=== PATIENT | female | born 1945 | race Caucasian/White ===

== ENCOUNTER 2019-12-04 12:54 | Inpatient (IN) | payer MEDICARE, OTHER ==
[~2019-12-04] VITALS: Ht 157.5 cm; Wt 127.6 kg
--- NOTE | ~2019-12-04 | EMS ---
[place] [address] EMS Patient Care Report Name: ALONDRA DASH Room: [place] [address] ADM IN [facility]#: [id number] Admission: 12/04/19 Attend Phys: Janelle Mejias Discharge: Date of : 41 Report #: [id number] THIS REPORT FOR: //name// Report Transmitted: 12/04/2019 14:03 EMS Care Summary [facility] Incident [id number] @ 12/04/2019 11:48 Incident [address] [place] [address] Patient ALONDRA DASH Female, 74 Years 1945 Patient Address [address] [place] [address] Patient History Chronic Obstructive Pulmonary Disease (COPD),Diabetes,Hypertension (HTN),Emphysema,Edema,Shortness of Breath,Coronary Artery Disease (CAD),Cardiomyopathy, Patient Allergies No known allergies, Patient Medications Atorvastatin, Atrovent, Potassium, Glipizide, Duloxetine, Coumadin, Pantoprazole, Albuterol, Furosemide, Hydralazine, Metoprolol, Prednisone, Novolin, Chief Complaint "Weird feeling in my chest." Disposition Transported No Lights/[place] Reason Sick Person Transported To [facility] Narrative Dispatch: [place] [address] EMS Patient Care Report Name: ALONDRA DASH Room: [address] IN [facility]#: [id number] Admission: 12/04/19 Attend Phys: Janelle Mejias Discharge: Date of : 41 Report #: [id number] [facility] was dispatched to a local address for a patient who was having some sort of cardiac issue. [facility] responded from the station and arrived on scene without incident. Chief Complaint: Upon arrival to the scene, the patient, (Alondra Dash - goes by Pat) was complaining of a "weird" feeling in her chest. She could not describe it further. She stated that it began when she woke up in the morning, so she went to the doctor. At the doctor's office, they did an EKG and stated that she was in atrial fibrillation with rapid ventricular response. History of Present Illness: Alondra has a history of atrial fibrillation, and she stated that she usually does not have problems with it. She stated that she woke up in the morning and had a "weird" feeling in her chest. She stated that she did not exert herself, and nothing was abnormal with her routine. However, she did admit that she did not take her morning medications. Alondra denied any pain or other complaints. Assessment: Primary Assessment - Marika had a patent airway, her respiratory effort was not noted to be labored, her skin was pink, warm, and dry. Radial pulses were present and no disability was noted. Secondary Assessment - See assessment section for further information. Reason for Ambulance Transport: Mariak required further evaluation and treatment at the hospital by a physician. Treatments: Assessment was performed. Vital signs were obtained. 12-Lead EKGs were performed and would show sinus tachycardia with premature ventricular complexes or would show atrial fibrillation. IV access was attempted and failed with an 18 gauge IV in the left antecubital space. IV access was obtained in the right antecubital space with a 20 gauge IV. It was flushed with saline and secured with a saline lock. A 500 mL bag of Lactated Ringer's was hung and 200 mL was administered during transport. Vagal maneuvers were attempted and performed without success. 12 mg of adenosine was administered without relief or success. Summary of Call: Alondra was moved to the cot, all seat belts were applied and she was taken to the ambulance and loaded without incident. Non-emergency transport to the hospital began. During transport, no changes in patient condition were noted. Report was called to the receiving facility. Upon arrival to the hospital, Marika was unloaded and taken into the facility without [place]. [place] [address] EMS Patient Care Report Name: ALONDRA DASH Room: [address] IN [facility]#: [id number] Admission: 12/04/19 Attend Phys: Janelle Mejias Discharge: Date of : 41 Report #: [id number] to the hospital bed, report was given to nursing staff, signatures were obtained, and patient care was transferred. Initial Vitals @12:10P: 141,R: 16,BP: 142/86,Pain: 0/10,GCS: 15,SpO2: 96,Revised Trauma: 12,CA Suspected: false @12:48P: 134,R: 18,Pain: 0/10,GCS: 15,SpO2: 97,CA Suspected: false @12:24P: 135,R: 18,BP: 101/82,Pain: 0/10,GCS: 15,SpO2: 96,Revised Trauma: 12,CA Suspected: false @12:19P: 141,R: 16,BP: 99/55,Pain: 0/10,GCS: 15,Glucose: 286,SpO2: 96,Revised Trauma: 12, @12:31P: 152,R: 16,BP: 104/82,Pain: 0/10,GCS: 15,SpO2: 94,Revised Trauma: 12, @12:45P: 132,R: 16,BP: 113/80,Pain: 0/10,GCS: 15,SpO2: 94,Revised Trauma: 12, Assessments @12:00MENTAL:Person Oriented,Time Oriented,Event Oriented,Place Oriented,SKIN:HEENT:Eyes: Left Pupil: 3-mm,Eyes: Right Pupil: 3-mm,LUNG SOUNDS:ABDOMEN:PELVIS//GI:EXTREMITIES:Capillary Refill: Left Upper: < 2 Sec,PULSE:Radial: 2+ Normal,NEURO:@12:45MENTAL:Event Oriented,Time Oriented,Person Oriented,Place Oriented,SKIN:HEENT:Head/Face: No Abnormalities,Eyes: No Abnormalities,Neck/Airway: No Abnormalities,LUNG SOUNDS:ABDOMEN:PELVIS//GI:EXTREMITIES:PULSE:Radial: 2+ Normal,NEURO: Impression Cardiac arrhythmia/dysrhythmia Procedures @12:4212-Lead ECGResponse: UnchangedSucceeded@12:1012-Lead ECGResponse: UnchangedSucceeded@12:1912-Lead ECGResponse: UnchangedSucceeded@12:4812-Lead ECGResponse: UnchangedSucceeded@12:3112-Lead ECGResponse: UnchangedSucceeded@12:05ALS AssessmentResponse: UnchangedSucceeded@12:11Normal Saline (.9% NaCl) 0cc (18 ga) Site: Antecubital-LeftResponse: UnchangedFailed@12:12Lactated Ringers 200cc (20 ga) Site: Antecubital-RightResponse: UnchangedSucceeded@12:25Adenosine - 12 Milligrams (mg) - Intravenous (IV)Response: Unchanged Timeline 11:48,Call Received 11:48,Dispatched 11:50,En Route 11:55,On Scene 11:59,At Patient 12:05,ALS Assessment,Response: UnchangedSucceeded, 12:10,12-Lead ECG,Response: UnchangedSucceeded, 12:10,BP: 142/86 M,PULSE: 141,RR: 16 R,SPO2: 96 Ox,ETCO2: ,BG: ,PAIN: 0,GCS: 15, [place] [address] EMS Patient Care Report Name: ALONDRA DASH Room: [place] [address] ADM IN [facility]#: [id number] Admission: 12/04/19 Attend Phys: Janelle Mejias Discharge: Date of : 41 Report #: [id number] 12:11,Normal Saline (.9% NaCl) 0cc 18 ga Site: Antecubital-Left,Response: UnchangedFailed, 12:12,Lactated Ringers 200cc 20 ga Site: Antecubital-Right,Response: UnchangedSucceeded, 12:17,Depart Scene 12:19,12-Lead ECG,Response: UnchangedSucceeded, 12:19,BP: 99/55 M,PULSE: 141,RR: 16 R,SPO2: 96 Ox,ETCO2: ,B,PAIN: 0,GCS: 15, 12:24,BP: 101/82 M,PULSE: 135,RR: 18 R,SPO2: 96 Ox,ETCO2: ,BG: ,PAIN: 0,GCS: 15, 12:25,Adenosine - 12 Milligrams (mg) - Intravenous (IV),Response: Unchanged 12:31,12-Lead ECG,Response: UnchangedSucceeded, 12:31,BP: 104/82 M,PULSE: 152,RR: 16 R,SPO2: 94 Ox,ETCO2: ,BG: ,PAIN: 0,GCS: 15, 12:42,12-Lead ECG,Response: UnchangedSucceeded, 12:45,BP: 113/80 M,PULSE: 132,RR: 16 R,SPO2: 94 Ox,ETCO2: ,BG: ,PAIN: 0,GCS: 15, 12:48,12-Lead ECG,Response: UnchangedSucceeded, 12:48,BP: / M,PULSE: 134,RR: 18 R,SPO2: 97 Ox,ETCO2: ,BG: ,PAIN: 0,GCS: 15, 12:49,At Destination 13:49,Call Closed Disclaimer v1.1 Copyright 2020 [employer] This EMS Care Summary contains data elements from the applicable legal record (which may be displayed differently). It is designed to provide pertinent information for the following purposes: continuity of care, clinical quality, and state data reporting. The complete legal record is available to ED staff and administrators of the receiving hospital in [employer]'s Patient Tracker. All data is provided "as is."
[2019-12-04 13:00] VITALS: BP 149/84
[2019-12-04] MEDS ORDERED: FUROSEMIDE 40 M40 MG PO (13:04)
[2019-12-04] MEDS ORDERED: LIPITOR40 MG PO (13:04)
[2019-12-04] MEDS ORDERED: NOVOLIN 70100 UNIT/3 SUBQ ×2 (13:05→16:07)
[2019-12-04] MEDS ORDERED: PROTONIX40 M2 PO (13:06)
[2019-12-04] MEDS ORDERED: KLOR-CON 1010 MEQ PO (13:06)
[2019-12-04] MEDS ORDERED: GLIPIZIDE 10 MG10 MG PO (13:06)
[2019-12-04] MEDS ORDERED: XYZAL5 MG PO (13:12)
[2019-12-04] MEDS ORDERED: COZAAR 25 MG TA25 M1 PO (13:13)
[2019-12-04] MEDS ORDERED: COUMADIN 4 MG TA4 M1 PO (13:13)
[2019-12-04] MEDS ORDERED: IPRAT-ALBUT 0.5-3 ML INH (13:14)
[2019-12-04 13:25] LABS: ABSOLUTE BASOPHILS 0.1 thou/uL (0.0-0.2); ABSOLUTE EOSINOPHILS 0.2 thou/uL (0.0-0.7); ABSOLUTE LYMPHOCYTES 2.6 thou/uL (0.8-5.3); ABSOLUTE MONOCYTES 1.2 thou/uL (0.0-1.2); ABSOLUTE NEUTROPHILS 6.6 thou/uL (1.6-8.1); BASOPHILS 0.9 %; EOSINOPHILS 1.6 %; HEMATOCRIT 34.7 % (37.0-47.0); HEMOGLOBIN 10.8 gm/dL (12.0-15.0); LYMPHOCYTES 24.2 %; MCHC 31.2 g/dL (28.0-37.0); MCV 67.1 fL (80.0-100.0); MONOCYTES 11.3 %; MPV 9.4 fl. (7.2-11.1); NUCLEATED RBCS 0 /100WBC; PLATELET COUNT* 246 thou/uL (150-400); RBC 5.17 mil/uL (4.20-5.00); RDW-CV 18.5 % (10.5-14.5); WBC 10.7 thou/uL (4.0-11.0)
[2019-12-04 13:37] LABS: CALCIUM 8.3 mg/dL (8.5-10.1); CREATININE 1.2 mg/dL (0.6-1.3); POTASSIUM 3.7 mmol/L (3.5-5.1)
[2019-12-04 13:38] LABS: APTT 37.8 Seconds (25.0-31.3); INR 2.5; PROTIME 24.5 Seconds (9.20-11.50)
[2019-12-04 13:47] LABS: ALBUMIN 2.9 g/dL (3.4-5.0); MAGNESIUM 1.8 mg/dL (1.8-2.4); TOTAL BILIRUBIN 0.4 mg/dL (<0.1-1.0)
[2019-12-04 13:58] LABS: PLATELET ESTIMATE ADEQUATE
[2019-12-04 14:58] VITALS: BP 168/95
[2019-12-04] MEDS ORDERED: HYDRALAZINE 2525 M1 PO (16:10)
[2019-12-04] MEDS ORDERED: ATIVAN0.5 M1 PO (16:11)
[2019-12-04] MEDS ORDERED: DULOXETINE HCL30 MG PO (16:13)
[2019-12-04 16:15] VITALS: BP 126/66
--- NOTE | 2019-12-04 16:37 | EKG ---
[place] [address] ELECTROCARDIOGRAM REPORT Name: SHANTHI DASH Room: [address] ADM IN [facility]#: [id number] Admission: 12/04/19 Attend Phys: Casey Ballard Discharge: Date of : 41 Date of Service: 12/04/19 1255 Report #: [id number] THIS REPORT FOR: //name// [facility] ED Test Date: 2019-12-04 Test Time: 12:55:31 Pat Name: SHANTHI DASH Department: Room: [facility] Gender: F Resaw Operator: ALTA : 1945 Requested By: Elgin Abdul Order Number: [id number] MD: Moses Lara Measurements Intervals [place] Rate: 132 P: 252 ME: 110 QRS: -71 QRSD: 143 T: 113 QT: 334 QTc: 495 Interpretive Statements atrial fibrillation RBBB and LAFB Probable LVH with secondary repol abnrm No previous ECG available for comparison Electronically Signed On 12-04-2019 16:35:23 CDT by Moses Lara [email or web address] <ELECTRONICALLY SIGNED> By: Moses Lara MD, [facility] 12/04/19 1635 1255 1255 Moses Lara MD, [facility] /EPI
[2019-12-04 19:25] VITALS: BP 140/67
[2019-12-05] VITALS: BP 137/69
[2019-12-05 04:00] VITALS: BP 154/75
[2019-12-05 05:42] LABS: INR 2.6; PROTIME 26.1 Seconds (9.20-11.50)
[2019-12-05 05:47] LABS: ANION GAP 9 mmol/L (7-16); BUN 18 mg/dL (7-18); CALCIUM 8.5 mg/dL (8.5-10.1); CHLORIDE 103 mmol/L (98-107); CHOLESTEROL 108 mg/dL (<200); CO2 28 mmol/L (21-32); CREATININE 1.2 mg/dL (0.6-1.3); GLUCOSE 221 mg/dL (70-99); HDL CHOLESTEROL 35 mg/dL (>40); LDL CHOLESTEROL 44 mg/dL (<100); POTASSIUM 3.5 mmol/L (3.5-5.1); SODIUM 140 mmol/L (136-145); TC:HDL 3.1 Ratio (Not establshd); TRIGLYCERIDE 145 mg/dL (<150); TROPONIN-I LEVEL 0.06 ng/mL (<0.06); VLDL 29 mg/dL (<40)
[2019-12-05 05:49] LABS: SERUM ASSESSMENT CLEAR
[2019-12-05 08:00] VITALS: BP 165/62
--- NOTE | 2019-12-05 10:10 | CON ---
[address] [address] CONSULTATION Name: SHANTHI DASH Room: [address] IN [facility].#: [id number] Admission: 12/04/19 Attend Phys: Janelle Mejias Discharge: Date of : 41 Report #: [id number] THIS REPORT FOR: //name// cc: Serjio Jenkins MD, Matthew D MD ~ THIS REPORT FOR: //name// CC: Dr. Gregory Ballard DATE OF SERVICE: 12/04/2019 CARDIOLOGY CONSULTATION HISTORY OF PRESENT ILLNESS: The patient is a 74-year-old single white female who I was asked to see in the Emergency Room today after she was noted to be in atrial fibrillation. The patient has an extensive and complicated past medical history. Unfortunately, none of her records are available. In addition, she has never been here to [place]. There are no family members available. The patient has a history of morbid obesity. She previously was 5 feet 3 inches and weighed over 250 pounds. She has had a gastric sleeve surgery in 2013. She has a long history of coronary artery disease. Her first coronary stent was placed in 2004 at [facility]. She subsequently noted to have a heart murmur. In 2012, she underwent aortic valve replacement using a bovine prosthesis in 2012 at [facility]. Apparently at that time, no bypass surgery was performed. However, she required a second stent placement 3 years later in 2016 at [facility]. She has done well since that time, although she is not very active. She apparently does have a history of atrial fibrillation and has been on warfarin for a long period of time. She never was cardioverted. She was doing well until this morning, she awakened with the discomfort in the left side of her chest. It is not related to exertion or meals. She describes a sharp pain. There is no radiation of the pain. She denied any vomiting or bleeding. She denied any trauma to the chest. She came to the Emergency Room and was admitted for further evaluation and treatment. She denied the heart beat irregularly. She has had no lightheadedness or syncope. She has had no edema. PAST MEDICAL HISTORY: Otherwise significant for hernia repair. She apparently had a brain biopsy in 2011, right knee replacement, hypertension, diabetes, hyperlipidemia. CURRENT MEDICATIONS: Include Lasix, glipizide, hydralazine, losartan, Protonix, potassium, Lipitor, warfarin, metoprolol, insulin. ALLERGIES: She [place] [address] CONSULTATION Name: SHANTHI DASH Room: [address] IN [facility].#: [id number] Admission: 12/04/19 Attend Phys: Janelle Mejias Discharge: Date of : 41 Report #: [id number] FAMILY HISTORY: Her mother had heart disease. SOCIAL HISTORY: She is , lives in [place], [place]. Quit smoking years ago. No alcohol abuse. REVIEW OF SYSTEMS: No history of stroke. She has been diagnosed with COPD. No history of sleep apnea, liver disease. She has chronic kidney disease. No cancer. No psychiatric illness. No chronic skin condition. PHYSICAL EXAMINATION: GENERAL: Revealed an obese elderly female lying in bed. She appeared in no distress. VITAL SIGNS: She had a blood pressure of 130/70, pulse is 130 and irregular, respirations nonlabored. She is afebrile. HEENT: She is anicteric. Conjunctivae pink. Mucous membranes moist. NECK: Veins do not appear distended. No carotid bruits heard. CHEST: Revealed expiratory wheezes. CARDIOVASCULAR: Regular, tachycardia, grade 2 systolic ejection murmur. ABDOMEN: Obese. EXTREMITIES: Had trace edema. SKIN: Cool and dry. NEUROLOGIC: Nonfocal. RADIOLOGICAL DATA: Her ECG on admission showed atrial fibrillation, rapid ventricular response rate, left axis deviation, right bundle-branch block, no significant ST or T-wave changes were noted. Her workup in the Emergency Room today: Sodium 142, potassium 3.7, BUN 20, creatinine 1.2, glucose 340. Liver function studies were normal. Troponin 0.06. BNP 720. INR 2.5. White blood cell count 10.7, hemoglobin 10.8. IMPRESSION AND RECOMMENDATIONS: 1. Atrial fibrillation. Suspect persistent so we would not recommend cardioversion. The patient is on metoprolol for rate control. I would increase the dose. 2. Previous tissue aortic valve replacement. Recommend repeat echo. 3. Coronary artery disease. Previous stents. Since the patient is on warfarin, I would not recommend aspirin. 4. Chest pain. Atypical for angina. Suspect noncardiac. I would not recommend cardiac catheterization or stress testing at this time. 5. Diabetes. 6. Hypertension. The patient is on an ARB and beta bartolome. [address] [address] CONSULTATION Name: SHANTHI DASH Room: [address] IN [facility].#: [id number] Admission: 12/04/19 Attend Phys: Janelle Mejias Discharge: Date of : 41 Report #: [id number] 7. Obesity with previous gastric sleeve surgery. 8. Degenerative joint disease. <ELECTRONICALLY SIGNED> By: Moses Lara MD, FACC 12/05/19 1010 1415 1527Davijanelle Lara MD, FACC /nt
--- NOTE | 2019-12-05 12:33 | 2DMMODE ---
[place] [address] 2 D/M-MODE ECHOCARDIOGRAM Name: SHANTHI DASH Room: [address] IN [facility]#: [id number] Admission: 12/04/19 Attend Phys: Casey Ballard Discharge: Date of : 41 Date of Service: 12/05/19 1231 Report #: [id number] THIS REPORT FOR: cc: Serjio Jenkins MD, Matthew D MD [place], Michael J. MD [facility] ~ APPROVED REPORT Study performed: 12/05/2019 10:18:57 EXAM: Comprehensive 2D, Doppler, and color-flow Echocardiogram Patient Location: In-Patient Room #: [facility] Status: routine BSA: 2.21 HR: 62 bpm BP: 165/62 mmHg Rhythm: NSR Other Information Study Quality: Good Indications Murmur Atrial Fibrillation 2D Dimensions IVSd: 15.02 (7-11mm) LVOT Diam: 20.90 (18-24mm) LVDd: 48.63 mm PWd: 14.89 (7-11mm) Ascending Ao: 43.73 (22-36mm) LVDs: 28.84 (25-40mm) Aortic Root: 31.59 mm Volumes Left Atrial Volume (Systole) LA ESV Index: 36.30 mL/m2 Aortic Valve AoV Peak Dvein.: 3.00 m/s AO Peak Gr.: 36.01 mmHg LVOT Max P.39 mmHg AO Mean Gr.: 17.95 mmHg LVOT Mean P.86 mmHg LVOT Max V: 1.16 m/s AO V2 VTI: 60.87 cm LVOT Mean V: 0.79 m/s ALEX (VTI): 1.61 cm2 LVOT V1 VTI: 28.59 [place] [address] 2 D/M-MODE ECHOCARDIOGRAM Name: SHANTHI DASH Room: [address] IN [facility]#: [id number] Admission: 12/04/19 Attend Phys: Casey Ballard Discharge: Date of : 41 Date of Service: 12/05/19 1231 Report #: [id number] Mitral Valve E/A Ratio: 1.02 MV Decel. Time: 270.01 ms MV E Max Devin.: 1.18 m/s MV PHT: 78.30 ms MVA (PHT): 2.81 cm2 TDI E/Lateral E': 16.86 E/Medial E': 16.86 Medial E' Devin.: 0.07 m/s Lateral E' Devin.: 0.07 m/s Pulmonary Valve PV Peak Devin.: 1.30 m/s PV Peak Gr.: 6.78 mmHg Tricuspid Valve RAP Estimate: 5.00 mmHg TR Peak Gr.: 32.72 mmHg RVSP: 37.00 mmHg PA Pressure: 37.00 mmHg Left Ventricle The left ventricle is normal size. There is normal LV segmental wall motion. Mild to moderate concentric left ventricular hypertrophy. Left ventricular systolic function is normal. LVEF is 60-65%. The left ventricular diastolic function is normal. Right Ventricle The right ventricle is normal size. The right ventricular systolic function is normal. Atria Left atrium is mildly dilated. The right atrium size is normal. Aortic Valve Bioprosthetic aortic valve is present. No aortic regurgitation is present. There is no aortic valvular stenosis. Mitral Valve The mitral valve is normal in structure. Trace mitral regurgitation. No evidence of mitral valve stenosis. Tricuspid Valve The tricuspid valve is normal in structure. Trace tricuspid regurgitation. Mild [place] [address] 2 D/M-MODE ECHOCARDIOGRAM Name: SHANTHI DASH Room: [address]#: [id number] Admission: 12/04/19 Attend Phys: Casey Ballard Discharge: Date of : 41 Date of Service: 12/05/19 1231 Report #: [id number] Pulmonic Valve The pulmonary valve is normal in structure. There is no pulmonic valvular regurgitation. Great Vessels The aortic root is normal in size. The ascending aorta is moderately dilated. (4.37 cm in diameter) IVC is normal in size and collapses >50% with inspiration. Pericardium There is no pericardial effusion. <Conclusion> The left ventricle is normal size. Mild to moderate concentric left ventricular hypertrophy. Left ventricular systolic function is normal. LVEF is 60-65%. The left ventricular diastolic function is normal. Left atrium is mildly dilated. Bioprosthetic aortic valve is present. No aortic regurgitation is present. There is no aortic valvular stenosis. Trace tricuspid regurgitation. Mild pulmonary hypertension. The ascending aorta is moderately dilated. (4.37 cm in diameter) <ELECTRONICALLY SIGNED> By: Timothy Gray MD, FACC 12/05/19 1231 1231 1231 Timothy Gray MD, FACC /INF
[2019-12-05 12:34] VITALS: BP 123/73
--- NOTE | 2019-12-05 14:23 | EKG ---
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: : 1945 Requested By: Moses Lara Order Number: [id number] MD: Moses Lara Measurements Intervals [place] Rate: 62 P: -5 [place]: 229 QRS: -60 QRSD: 147 T: 141 QT: 479 QTc: 487 Interpretive Statements Sinus rhythm Prolonged [place] interval RBBB and LAFB Artifact in lead(s) II,III,aVR,aVL,aVF,V3,V4,V5,V6 Compared to ECG 12/04/2019 12:55:31 Atrial fibrillation no longer present Electronically Signed On 12-05-2019 14:21:53 CDT by Moses Lara [email or web address] <ELECTRONICALLY SIGNED> By: Moses Lara MD, [facility] 12/05/19 1421 5 5 Moses Lara MD, [facility] /EPI
[2019-12-05 16:11] VITALS: BP 134/52
[2019-12-05 19:30] VITALS: BP 184/74
[2019-12-06] VITALS: BP 146/52
[2019-12-06 04:00] VITALS: BP 146/68
[2019-12-06 05:05] LABS: PROTIME 29.2 Seconds (9.20-11.50)
[2019-12-06 08:00] VITALS: BP 182/69
[2019-12-06] MEDS ORDERED: SORINE 80 MG TA80 MG PO (11:36)
[2019-12-06 11:38] VITALS: BP 182/69
[2019-12-06] MEDS ORDERED: NITROGLYCERIN0.4 MG SUBLING ×2 (11:46→12:02)
[2019-12-06 12:01] VITALS: BP 149/65
--- NOTE | 2019-12-06 15:20 | EKG ---
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 12/06/19 1518 0754 0754 Moses Lara MD, [facility] /EPI
== END 2019-12-06 12:55 | disposition home or self-care (01) | DRG 309 ==
LOC: M.ERS 12:54 → M.2W 13:53 → M.TBA-ER 13:53 → M.2W 15:12
PROVIDERS: Emergency Medicine Emergency Medical Services; Internal Medicine Cardiovascular Disease; ADMIT Internal Medicine
DX: I48.91 Unspecified atrial fibrillation (principal); J44.1 Chronic obstructive pulmonary disease with (acute) exacerbation; D68.9 Coagulation defect, unspecified; Z68.43 Body mass index [BMI] 50.0-59.9, adult; E66.9 Obesity, unspecified; Z96.651 Presence of right artificial knee joint; I10 Essential (primary) hypertension; E11.9 Type 2 diabetes mellitus without complications; E78.5 Hyperlipidemia, unspecified; M19.90 Unspecified osteoarthritis, unspecified site; E87.6 Hypokalemia; I25.10 Atherosclerotic heart disease of native coronary artery without angina pectoris; Z82.49 Family history of ischemic heart disease and other diseases of the circulatory system; Z95.2 Presence of prosthetic heart valve; Z95.5 Presence of coronary angioplasty implant and graft

== ENCOUNTER 2020-11-06 05:28 | Inpatient (IN) | payer MEDICARE, OTHER ==
[~2020-11-06] VITALS: Ht 157.5 cm; Wt 104.3 kg
[~2020-11-06 05:28] MED LIST: ATIVAN0.5 M1 PO; COUMADIN 4 MG TA4 M1 PO; COZAAR 25 MG TA25 M1 PO; DULOXETINE HCL30 MG PO; FUROSEMIDE 40 M40 MG PO; GLIPIZIDE 10 MG10 MG PO; HYDRALAZINE 2525 M1 PO; IPRAT-ALBUT 0.5-3 ML INH; KLOR-CON 1010 MEQ PO; LIPITOR40 MG PO; NITROGLYCERIN0.4 MG SUBLING; NOVOLIN 70100 UNIT/3 SUBQ; PROTONIX40 M2 PO; SORINE 80 MG TA80 MG PO; XYZAL5 MG PO
[2020-11-09] MEDS ORDERED: LOSARTAN POTAS100 MG PO (09:46)
[2020-11-09] MEDS ORDERED: OZEMPIC1 MG/0.71 SUBQ (11:02)
[2020-11-16] MEDS ORDERED: TOPROL XL50 MG ×2 (09:07)
[2020-11-16] MEDS ORDERED: ANORO ELLIPTA1 EACH INH (09:08)
[2020-11-17 07:51] LABS: PROTIME 10.8 Seconds (9.20-11.50)
[2020-11-17 08:00] VITALS: BP 156/76
[2020-11-17 13:00] VITALS: BP 119/50
[2020-11-17 15:07] LABS: HEMATOCRIT 33.8 % (37.0-47.0); HEMOGLOBIN 10.9 gm/dL (12.0-15.0); MCH 26.8 pg (26.0-34.0); MCHC 32.2 g/dL (28.0-37.0); MCV 83.4 fL (80.0-100.0); MPV 8.3 fl. (7.2-11.1); RBC 4.06 mil/uL (4.20-5.00); WBC 20.1 thou/uL (4.0-11.0)
[2020-11-17 15:12] LABS: CALCIUM 8.5 mg/dL (8.5-10.1); CREATININE 1.2 mg/dL (0.6-1.3); POTASSIUM 3.5 mmol/L (3.5-5.1)
[2020-11-17 20:47] VITALS: BP 99/55
--- NOTE | 2020-11-17 20:49 | NUR ---
Pt arrived to floor around 1300. Pt A&O x4. Vital signs stable on 3L o2. Pt notably sleepy. Pt rating pain at 9/10 and requestion pain medication. Pt set up in the room, on ETCO2, bed in low postion, bed alarm on, call light within reach.
[2020-11-18] VITALS (8 sets, daily range): BP systolic 104–182; BP diastolic 45–75
--- NOTE | 2020-11-18 04:23 | NUR ---
PATIENT HAS REMAINED ALERT AND ORIENTED X 4 THROUGHOUT THE SHIFT AND RESTING QUIETLY ON HOURLY ROUNDS. PUREWICK IN PLACE FOR URINE. DRESSING/WOUND VAC LEFT HIP CLEAN AND DRY. ICE PACK PROVIDED. HEMOVAC INTACT DRAINING MINAMAL SANGUINEOUS FLUID. REPORTING ADEQUATE PAIN CONTROL WITH ORAL MEDS. LOW BP AT HS. PHYSICIAN NOTIFIED AND THESE WERE HELD. TO REASSESS TODAY. FALL PRECAUTIONS IN PLACE. CONTINUE TO MONITOR.
[2020-11-18 04:58] LABS: HEMATOCRIT 31.7 % (37.0-47.0); HEMOGLOBIN 10.1 gm/dL (12.0-15.0); MCH 26.8 pg (26.0-34.0); MCHC 31.8 g/dL (28.0-37.0); MCV 84.4 fL (80.0-100.0); MPV 8.9 fl. (7.2-11.1); RBC 3.76 mil/uL (4.20-5.00); RDW-CV 16.2 % (10.5-14.5); WBC 12.5 thou/uL (4.0-11.0)
[2020-11-18 05:03] LABS: HEMATOCRIT 31.5 % (37.0-47.0); HEMOGLOBIN 10.1 gm/dL (12.0-15.0)
[2020-11-18 05:52] LABS: CALCIUM 7.9 mg/dL (8.5-10.1); CREATININE 1.7 mg/dL (0.6-1.3); POTASSIUM 3.4 mmol/L (3.5-5.1)
--- NOTE | 2020-11-18 06:42 | NUR ---
0500 HEMOVAC DRAIN DISCONTINUED PER ORDER WITH MEPILEX COVER.
--- NOTE | 2020-11-18 13:29 | NUR ---
Pt is A&O. Resides at home alone, 2 dtrs that are supportive live close by and will be available at [place]. Pt is normally independent. Pt has a rollator and electric scooter at home. Hx of ALIREZA RAHMAN. Hx of skilled at [facility]. Goal is home at [place] with ALIREZA RAHMAN, TYE faxed initial referral to , will fax orders at [place] p:[phone] [phone] f:[phone]. CM contacted [facility] p:[phone] to check the cost of Pt's Xarelto, cost is $3.67. Anticipate dc to home tomorrow.
--- NOTE | 2020-11-18 16:16 | OP ---
[facility] [address] [place] [address] OPERATIVE REPORT Name: SHANTHI DASH Room: [address] IN .R.#: [id number] Admission: 11/17/20 Attend Phys: Janelle Mejias Discharge: Date of : 41 Report #: [id number] THIS REPORT FOR: cc: Serjio Jenkins MD, Matthew D MD Greiner, Robert F. II DO ~ DATE OF SERVICE: 11/17/2020 PREOPERATIVE DIAGNOSIS: Left hip osteoarthritis. POSTOPERATIVE DIAGNOSIS: Left hip osteoarthritis. PROCEDURE: Left total hip arthroplasty. SURGEON: Sage Baldwin II, DO. GEOMAGNETICIAN: None. ANESTHESIA: General endotracheal. ESTIMATED BLOOD LOSS: 600 mL. ANTIBIOTICS: Ancef preoperatively. DRAINS: Medium Hemovac. COMPLICATIONS: None. CONDITION OF THE PATIENT: Stable to recovery room. IMPLANTS: Listed in operative record and progress note. BRIEF HISTORY: The patient was seen in the preoperative area. Preoperative H and P was performed. Site was marked, questions were answered. Risks and benefits were discussed with the patient in detail about surgery. The patient wished to proceed, assuming all risks. DESCRIPTION OF PROCEDURE: The patient was taken to the operative suite and placed supine on the operating table, given appropriate anesthesia. The patient's operative hip was placed in the [place] table leg cabrera and sterilely prepped and draped in supine position. Surgery began on longitudinal incision over the anterior portion of the hip. This was carried down to the subcutaneous tissues. A small pratima was made in the tensor fascia. It was then split along its fibers and retracted laterally. An H capsulotomy was then performed and careful hemostasis was maintained with electrocautery and [place] [address] OPERATIVE REPORT Name: SHANTHI DASH Room: [address] IN [facility].#: [id number] Admission: 11/17/20 Attend Phys: Janelle Mejias Discharge: Date of : 41 Report #: [id number] and neck cutting alignment guide was then checked with fluoroscopic guidance. Appropriate cut was made to the head and neck and this was removed. Attention was turned to the acetabulum. Excess labrum was removed. It was then reamed in sequential fashion up to appropriate size. This showed excellent bleeding bone and excellent position with fluoroscopic guidance. The acetabular cup was then malleted into position and secured with two cancellous screws. Metal liner was then applied. The patient's leg was then rotated and extended to the [place] table to expose the femur. It was then broached in sequential fashion up to appropriate size. Appropriate neck was then trialed with appropriate head length, which showed to have excellent fit and fill and excellent stability of hip throughout all range of motion. These trials were removed. The final stem was then malleted into position and the final head was then malleted into position. It was reduced in appropriate fashion, checked with C-arm for appropriate leg length and showed excellent leg length throughout the exam without evidence of dislocation upon range of motion and shuck testing. Wound was then copiously irrigated. Hemostasis was maintained with electrocautery and Aquamantys. Pain cocktail was injected. The H capsulotomy was then closed utilizing 1 Vicryl in [id number] fashion. Tensor fascia was closed with #1 Vicryl in running fashion. Skin was closed with 2-0 Vicryl and a running 3-0 Monocryl with Dermabond and sterile dressing applied. The patient was transported to recovery room in stable condition. Counts were correct throughout the procedure. <ELECTRONICALLY SIGNED> By: Sage Baldwin II, 11/18/20 1616 [id number] Baldwin II DO /nt
[2020-11-18 18:05] LABS: BE -2.2 mmol/L (-2 to +3); PCO2 48.1 mmHg (35.0-45.0); pH 7.319 (7.340-7.450)
--- NOTE | 2020-11-18 18:25 | NUR ---
PT UP IN CHAIR MOST OF SHIFT. PARTICIPATES IN THERAPY. CONFUSED LATE AFTERNOON AND EVENING BUT REDIRECTABLE. FAMILY AT BS AND UPDATED ON PT STATUS. INCONTINENT OF URINE. PAIN WELL CONTROLLED.
[2020-11-19] VITALS: BP 93/50
[2020-11-19 04:00] VITALS: BP 103/56
[2020-11-19 05:25] LABS: HEMATOCRIT 30.3 % (37.0-47.0); HEMOGLOBIN 9.8 gm/dL (12.0-15.0)
[2020-11-19 05:34] LABS: INR 1.1; PROTIME 11.4 Seconds (9.20-11.50)
[2020-11-19] MEDS ORDERED: XARELTO10 MG PO (07:51)
[2020-11-19 08:00] VITALS: BP 112/61
--- NOTE | 2020-11-19 08:46 | NUR ---
DC orders written, faxed them to [facility]
--- NOTE | 2020-11-19 09:13 | NUR ---
PATIENT HAS RESTED WELL THROUGHOUT MOST OF THE NIGHT. VSS ON 2L 02 VIA NASAL CANNULA. MEDICATIONS GIVEN ORDERED AND CHARTED. DRESSING TO LEFT HIP IS C/D/I WITH CRISTINA WOUND VAC IN PLACE. PATIENT UP WITH ASSIST X 1 TO BSC WITH WALKER AND GAITBELT. IV IN LEFT FOREARM-SL. FALL PRECAUTIONS IN PLACE AND HOURLY ROUNDS MADE. WILL CONTINUE WITH PLAN OF CARE AND NURSING TO MONITOR.
[2020-11-19 16:05] VITALS: BP 111/56
--- NOTE | 2020-11-19 17:56 | NUR ---
PT VERY CONFUSED THIS AM BUT SINCE SHE HAD A NAP AND WOKE UP SHE WAS MORE ALERT AND ORIENTED TO TIME AND PLACE AND KNOWING WHAT IS GOING ON. VSS AFEBERILE. HIP DRESSING C/D/I. WILL CONTINUE TO MONITOR PLAN OF CARE.
[2020-11-19 20:09] VITALS: BP 105/47
[2020-11-20 03:13] VITALS: BP 136/53
--- NOTE | 2020-11-20 04:11 | NUR ---
PT CONFUSED AND AGITATED. REFUSED EVERYTHING AND SAID SHE WAS GOING HOME. PT TALKS NONSENSE. UP TO BSC TO VOID. IT TOOK 4 PEOPLE TO GET HER UP. TYLENOL GIVEN FOR PAIN. DRESSING TO LT HIP C/D/I WITH WOUND VAC IN PLACE. BED ALARM ON FOR SAFETY. WILL CONTINUE TO MONITOR.
[2020-11-20 08:40] VITALS: BP 125/65
[2020-11-20] MEDS ORDERED: HYDROCODON-ACE1 EAC7 PO (11:31)
--- NOTE | 2020-11-20 13:10 | NUR ---
Plan for Pt to [facility] tomorrow, dtr here and aware of dispo, plans to transport. Nurse should call report to [phone] and ask to speak to the nurse of Room #1. DC orders should be faxed to [phone]. Chart will need to be copied. Family to transport
[2020-11-20 13:19] LABS: INR 1.6; PROTIME 16.1 Seconds (9.20-11.50)
[2020-11-20 16:00] VITALS: BP 112/57
--- NOTE | 2020-11-20 20:26 | NUR ---
Pt Oriented to self and place. Pt was pleasant when morning assessment was done. Pt then wanted to leave the hospital and go to the long term "right now". Pt educated on steps needed to get to long term and notified later that it would not be until tomorrow that she would go. Pt upset stating she wanted to leave and that there was "a lady who did not speak coming in here every day and doing wierd stuff." but could not clarify any further information about the lady or what she was doing. Pt also stated, "there is presybeterian or something going on here, I need to get out of this hospital." Pt's family assured her that they would not leave her in a place that they felt she was being mistreated or harmed and assured the pt that they would be here to see her at 8am tomorrow morning and see that she went to the long term. Pt calmed down and was agreeable to plan. Pt was for most of the rest of the day but did seem to get anxious or have mutterings about leaving whenever waking up from a nap until she got fully oriented. Bed in low position, bed/chair alarm on, call light within reach.
[2020-11-20 20:40] VITALS: BP 129/59
--- NOTE | 2020-11-20 21:32 | NUR ---
ASSUMED CARE AT 19:00. ENTERED PT ROOM AT 19:30, SHE HAD REMOVED CRISTINA DRAIN AND IV AND PLACED ON SIDE TABLE. SHE REQUESTED A WHEELCHAIR AND WAS READY FOR HER DAUGHTER TO COME GET HER. SHE APPEARED CONFUSED AND ANXIOUS. WE CALLED HER DAUGHTER FATOU TO ASSIST WITH REASSURANCE OF HER COMING IN THE MORNING TO VISIT HER. PT SEEMED TO CALM AFTER CALL MADE. SHE TOOK HER NIGHT MEDS WITHOUT ISSUES AND I GOT HER A SNACK, TUCKED HER IN AND TURNED ON THE TV. SHE WAS IN AGREEMENT THAT SHE SHOULD STAY UNTIL FATOU CAME IN THE MORNING.
[2020-11-21 04:19] LABS: INR 1.3; PROTIME 13.6 Seconds (9.20-11.50)
--- NOTE | 2020-11-21 05:42 | NUR ---
PT HAD SOME ANXIETY/AGITATION AT BEGINNING OF SHIFT. WE CALLED HER DAUGHTER TO REASSURE HER THAT SHE WOULD VISIT THIS MORNING. PT RECEIVED ALL MEDS SCHEDULED. SHE IS UP WITH ASSISTANCE TO THE BEDSIDE COMMODE. NO REPORTS OF ANY PAIN OR DISCOMFORT. SHE RESTED WELL THIS SHIFT WITHOUT FURTHER INCIDENT.
[2020-11-21 09:00] VITALS: BP 133/57
[2020-11-21] MEDS ORDERED: ENOXAPARIN40 MG/0.1 SUBQ (09:44)
[2020-11-21 10:23] LABS: CALCIUM 8.2 mg/dL (8.5-10.1); CREATININE 1.7 mg/dL (0.6-1.3); POTASSIUM 4.2 mmol/L (3.5-5.1)
--- NOTE | 2020-11-21 11:34 | NUR ---
PATIENT DISCHARGED TO [facility] AT THIS TIME. DISCHARGE PAPERS GIVEN TO DAUGHTER. DRESSING REAPPLIED TO LEFT HIP. PATIENT DC'D VIA WHEELCHAIR ACCOMPANIED BY DAUGHTER AND SON-IN-LAW TO PRIVATE VEHICLE. ALL QUESTION AND CONCERNS ADDRESSED AT THIS TIME.
--- NOTE | 2020-11-21 12:06 | NUR ---
CM INFORMED BY THE PHYSICIAN OF PLAN FOR PT TO D/C TO SNF TODAY. CM CALLED AND FAXED PT'S D/C ORDERS TO [facility]. CM SPOKE TO PT'S DTR AND CONFIRMED WITH HER THAT SHE PLANNED TO PROVIDE PT TRANSPORT TO [facility]. CM PROVIDED RN IN-CHARGE OF PT THE PHONE NUMBER TO PROVIDED [id number] REPORT. CM WILL REMAIN AVAILABLE TO ASSIST AND FOLLOW NEEDED. DRUZE JUDSON CLAUDIO [place] ([facility]) PHONE: [phone] FAX: [phone]
== END 2020-11-21 11:20 | DRG 469 ==
LOC: M.PRE → M.ORTHSURG 11-17 07:12 → M.TBA 11-17 07:12 → M.PRE 11-17 10:47 → M.ORTHSURG 11-17 13:15
PROVIDERS: Internal Medicine; Orthopaedic Surgery; ADMIT Internal Medicine; ATTEND Internal Medicine
PROC: 0SRB0JZ Replacement of Left Hip Joint with Synthetic Substitute, Open Approach (ICD-10-PCS; principal; 2020-11-17)
PROC: 3E0T3BZ Introduction of Anesthetic Agent into Peripheral Nerves and Plexi, Percutaneous Approach (ICD-10-PCS; 2020-11-17)
DX: M16.12 Unilateral primary osteoarthritis, left hip (principal); G92 Toxic encephalopathy; I48.20 Chronic atrial fibrillation, unspecified; E80.0 Hereditary erythropoietic porphyria; D68.69 Other thrombophilia; Z68.41 Body mass index [BMI] 40.0-44.9, adult; I25.10 Atherosclerotic heart disease of native coronary artery without angina pectoris; E11.9 Type 2 diabetes mellitus without complications; I10 Essential (primary) hypertension; F41.9 Anxiety disorder, unspecified; F32.9 Major depressive disorder, single episode, unspecified; E66.01 Morbid (severe) obesity due to excess calories; G47.33 Obstructive sleep apnea (adult) (pediatric); R53.81 Other malaise; Z79.01 Long term (current) use of anticoagulants; Z79.4 Long term (current) use of insulin; Z79.899 Other long term (current) drug therapy; Z95.4 Presence of other heart-valve replacement; Z98.84 Bariatric surgery status; Z98.891 History of uterine scar from previous surgery; Z95.5 Presence of coronary angioplasty implant and graft; Z87.891 Personal history of nicotine dependence

== ENCOUNTER → 2020-11-10 | Outpatient (CLI) | payer MEDICARE, OTHER ==
[~2020-11-10] MED LIST changes: +ANORO ELLIPTA1 EACH INH; +ENOXAPARIN40 MG/0.1 SUBQ; +HYDROCODON-ACE1 EAC7 PO; +LOSARTAN POTAS100 MG PO; +OZEMPIC1 MG/0.71 SUBQ; +TOPROL XL50 MG; +XARELTO10 MG PO
[2020-11-10 10:40] LABS: ABSOLUTE BASOPHILS 0.1 thou/uL (0.0-0.2); ABSOLUTE EOSINOPHILS 0.2 thou/uL (0.0-0.7); ABSOLUTE LYMPHOCYTES 1.8 thou/uL (0.8-5.3); ABSOLUTE MONOCYTES 0.9 thou/uL (0.0-1.2); ABSOLUTE NEUTROPHILS 7.1 thou/uL (1.6-8.1); BASOPHILS 0.8 %; EOSINOPHILS 1.5 %; HEMATOCRIT 39.4 % (37.0-47.0); HEMOGLOBIN 12.9 gm/dL (12.0-15.0); LYMPHOCYTES 17.8 %; MCH 27.3 pg (26.0-34.0); MCHC 32.6 g/dL (28.0-37.0); MCV 83.6 fL (80.0-100.0); MONOCYTES 9.3 %; MPV 8.3 fl. (7.2-11.1); NUCLEATED RBCS 0 /100WBC; PLATELET COUNT* 229 thou/uL (150-400); POLYS 70.6 %; RBC 4.72 mil/uL (4.20-5.00); RDW-CV 15.9 % (10.5-14.5)
[2020-11-10 10:42] LABS: URINE BILIRUBIN NEGATIVE (Negative); URINE BLOOD NEGATIVE (Negative); URINE CLARITY CLEAR; URINE COLOR YELLOW; URINE GLUCOSE-RANDOM NEGATIVE (Negative); URINE KETONES NEGATIVE (Negative); URINE LEUKOCYTES-REFLEX NEGATIVE (Negative); URINE NITRITE-REFLEX NEGATIVE (Negative); URINE PROTEIN TRACE (Negative); URINE SPECIFIC GRAVITY 1.025 (1.005-1.030); URINE UROBILINOGEN 0.2 E.U./dl (0.2-1.0)
[2020-11-10 10:48] LABS: INR 1.7
[2020-11-10 11:03] LABS: ALBUMIN 2.9 g/dL (3.4-5.0); CALCIUM 9.1 mg/dL (8.5-10.1); CREATININE 1.2 mg/dL (0.6-1.3); POTASSIUM 3.5 mmol/L (3.5-5.1); TOTAL BILIRUBIN 0.5 mg/dL (<0.1-1.0); TOTAL PROTEIN 6.4 g/dL (6.4-8.2)
== END ==
LOC: M.LAB 05:28
PROVIDERS: ATTEND Orthopaedic Surgery
DX: Z01.818 Encounter for other preprocedural examination (principal); M16.12 Unilateral primary osteoarthritis, left hip; Z95.4 Presence of other heart-valve replacement